=== PATIENT | male | born 1985 | race Caucasian/White ===

== ENCOUNTER 2021-02-12 12:51 | Inpatient (IN) | payer BC, SELFPAY ==
--- NOTE | ~2021-02-12 | XR_ITS ---
EXAMINATION: XR chest 1V portable DATE: 02/12/2021 14:21 INDICATION: COVID-19 pneumonia. TECHNIQUE: A single frontal view of the chest was obtained. COMPARISON: None. FINDINGS: There are patchy airspace opacities in all lung zones bilaterally. No pleural effusion or p neumothorax. The heart size is normal. IMPRESSION: 1. Diffuse lung disease, consistent with COVID-19 pneumonia. Reviewed, dictated and finalized at location B. CIATE PROFESSOR OF BIOLOGY
--- NOTE | ~2021-02-12 | CT_ITS ---
EXAMINATION: CTA chest PE protocol EXAM DATE: 02/15/2021 13:27 INDICATION: Elevated d. dimer. TECHNIQUE: Spiral CTA of the chest (pulmonary arteries) was performed with 100 cc Omnipaque 350 intr avenous contrast injection. Images were acquired during the pulmonary arterial phase. Coronal maxi mum intensity projection 3D-reconstructions were created by the technologist on dedicated workstation . Axial, coronal and sagittal reformatted images were reviewed. The dose-length product (DLP) for t his examination was 1050.25 mGy-cm. The exposure was tailored according to patient size (auto mA ex posure control), and iterative reconstruction (ASIR) was used as additional dose reduction technique. There is no prior study for comparison. FINDINGS: Pulmonary arteries are well opacified and without intraluminal filling defects. No thora cic aortic dissection. Diffuse airspace disease most likely COVID pneumonia, all lobes involved. Th ere are no pleural or pericardial effusions. Tracheobronchial tree is patent. There is no mediast inal, hilar or axillary lymphadenopathy. There is no pneumothorax. Heart normal in size. No balwinder dence of coronary arterial calcification. Upper abdomen is unremarkable. There is thoracic spondyl osis without osteoblastic or osteolytic lesions identified. IMPRESSION: 1. Diffuse COVID pneumonia. 2. No pulmonary emboli. Reviewed, dictated and finalized at location A. UTER REPAIR INSTRUCTOR
--- NOTE | ~2021-02-12 | XR_ITS ---
EXAMINATION: XR chest 1V portable DATE: 02/14/2021 07:08 INDICATION: Dyspnea. TECHNIQUE: A single frontal view of the chest was obtained. COMPARISON: Chest single view 02/12/2021 FINDINGS: There are patchy airspace opacities in all lung zones bilaterally. No pleural effusion or p neumothorax. The heart size is normal. IMPRESSION: 1. Stable diffuse lung disease, consistent with COVID-19 pneumonia. Reviewed, dictated and finalized at location A. CLING CENTER OPERATOR
--- NOTE | ~2021-02-12 | US_ITS ---
EXAMINATION: US venous doppler [facility] DATE: 02/13/2021 14:43 INDICATION: Lower limb swelling. TECHNIQUE: Grayscale ultrasound images without and with compression and Doppler ultrasound images of the bilateral lower extremity veins were obtained. COMPARISON: None. FINDINGS: The visualized portions of right common femoral vein, profunda (deep) femoral vein, femoral vein, pop liteal vein, peroneal veins, posterior tibial veins, and greater saphenous vein outflow are patent. The visualized portions of left common femoral vein, profunda femoral vein, femoral vein, popliteal v ein, peroneal veins, posterior tibial veins, and greater saphenous vein outflow are patent. IMPRESSION: 1. No deep venous thrombosis. Reviewed, dictated and finalized at location A. RDING STUDIO INTERNSHIP
[2021-02-12 13:03] VITALS: BP 133/93; PULSE 127; RESP 20; TEMP 38.9; O2SAT 92
--- NOTE | 2021-02-12 14:03 | ECG_ITS ---
Measurements Intervals [place] Rate: 120 P: 14 [place]: 118 QRS: 5 QRSD: 80 T: 0 QT: 325 QTc: 461 Interpretive Statements SINUS TACHYCARDIA WITH SHORT [place] INTERVAL DELAYED PRECORDIAL R/S TRANSITION CONSIDER INFERIOR INFARCT, AGE INDETERMINATE BASELINE ARTIFACT- II, III, AVR, AVF, V1, V3-V6 ABNORMAL ECG Electronically Signed On 02-12-2021 15:39:49 INDUSTRIAL MANAGEMENT TEACHER by Andreas Mckenna D.O.
[2021-02-12 14:56] LABS: Basophils Percent Auto 0.2 % (0.2-1.2); Hematocrit 45.7 % (42.0-52.0); Hemoglobin 15.4 g/dL (14.0-18.0); Immature Granulocyte Absolute 0.03 K/mm3 (0.00-0.031); Immature Granulocyte Percent A 0.6 % (0-0.5); Lymphocytes Absolute Auto 0.52 K/mm3 (0.9-3.2); Lymphocytes Percent Auto 10.7 % (18.3-44.2); Mean Corpuscular HGB Conc 33.7 g/dl (32-36); Mean Corpuscular Hemoglobin 30.3 pg (26-34); Mean Corpuscular Volume 89.8 fl (80-100); Mean Platelet Volume 11.2 fl (7.4-10.4); Monocytes Absolute Auto 0.3 K/mm3 (0.1-0.6); Neutrophils Percent Auto 82.5 % (45.5-73.1); Platelet Count Result 186 k/mm3 (150-375); Red Blood Count 5.09 M/mm3 (4.6-6.20); Red Cell Distribution Width 12.8 % (11.5-14.5); White Blood Count 4.9 K/mm3 (4.5-10.0)
[2021-02-12 15:08] VITALS: BP 132/78; PULSE 122; RESP 18; O2SAT 94
[2021-02-12 15:13] LABS: Alanine Aminotransferase 52 U/L (4-50); Albumin Level 3.8 g/dL (3.5-5.1); Alkaline Phosphatase 91 U/L (38-126); Anion Gap 9 mmol/L (8-16); Aspartate Amino Transferase 69 U/L (17-59); Bilirubin,Total 0.5 mg/dL (0.2-1.3); Blood Urea Nitrogen 10 mg/dL (9-20); Carbon Dioxide 25 mmol/L (22-30); Chloride 101 mmol/L (98-107); Estimated CRCL calculation 179 ml/min; Estimated Glomerular Filt Rate > 60; Glucose 127 mg/dL (65-110); Potassium 3.4 mmol/L (3.4-5.0); Sodium 135 mmol/L (137-145)
[2021-02-12 16:49] VITALS: BP 144/79; PULSE 117; RESP 21; TEMP 37.3; O2SAT 94
--- NOTE | 2021-02-12 17:09 | ED.SOB ---
HPI - SOB/Dyspnea General Chief Complaint: Shortness of Breath/Dyspnea Stated Complaint: Dyspnea, Covid + Source: patient and RN notes reviewed History of Present Illness HPI Narrative: Patient presents with difficulty breathing started 1 week ago and gradually getting worse. Patient had Covid symptoms 1 week ago, tested +2 days later. Patient is not vaccinated for COVID. Related Data Allergies Allergy/AdvReac Type Severity Reaction Status Date / Time No Known Allergies Allergy Verified 02/12/21 13:07 Review of Systems Review of Systems: CONSTITUTIONAL: Denies fever, chills, or sweats. EYES: Denies visual changes, redness, or discharge. ENT: Denies rhinorrhea, congestion, sore throat, or otalgia. CARDIOVASCULAR: Denies chest pain, palpitations, or edema. RESPIRATORY: Coughing and shortness of breath GASTROINTESTINAL: Denies abdominal pain, nausea, vomiting, or diarrhea. GENITOURINARY: Denies dysuria or hematuria. SKIN: Denies rash or itching. MUSCULOSKELETAL: Denies back pain, joint pain, or myalgia. NEUROLOGIC: Denies headache, numbness, or weakness. PSYCHIATRIC: Denies anxiety or depression. Exam Narrative: General appearance: Well-developed, well-nourished, morbidly obese Skin: Normal color Head: Normocephalic, nontraumatic Eyes: Clear conjunctiva ENT: Oropharynx normal, ears normal, nose normal Neck: Supple, nontender Chest and respiratory: Airway patent, slight labored breathing, diminishment of air entry bilaterally Heart: Regular rate/rhythm Abdomen: Soft, nontender, no organomegaly, quiet bowel sounds Vascular: Normal peripheral pulses, normal capillary refill. Musculoskeletal: Normal range of motion, nontender back Neurologic: Alert and oriented ?3, COUNTY PROGRAM TECHNICIAN is normal as tested, no gross motor deficit Course Course Emergency Course: Stable, guarded Vital Signs Vital signs: Vital Signs Temperature 38.9 C H 02/12/21 13:03 Pulse Rate 127 H 02/12/21 13:03 Respiratory Rate 20 02/12/21 13:03 Blood Pressure 133/93 H 02/12/21 13:03 Pulse Oximetry 92 02/12/21 13:03 Temperature 37.3 C 02/12/21 16:49 Pulse Rate 117 H 02/12/21 16:49 Respiratory Rate 21 H 02/12/21 16:49 Blood Pressure 144/79 H 02/12/21 16:49 Pulse Oximetry 94 02/12/21 16:49 MDM - SOB/Dyspnea Lab Data Result diagrams: 02/12/21 14:33 02/12/21 14:33 Labs: Lab Results 02/12/21 02/12/21 02/12/21 Range/Units 14:33 14:33 14:33 WBC 4.9 (4.5-10.0) K/mm3 RBC 5.09 (4.6-6.20) M/mm3 Hgb 15.4 (14.0-18.0) g/dL Hct 45.7 (42.0-52.0) % MCV 89.8 (80-100) fl MCH 30.3 (26-34) pg MCHC 33.7 (32-36) g/dl RDW 12.8 (11.5-14.5) % Plt Count 186 (150-375) k/mm3 MPV 11.2 H (7.4-10.4) fl Immature Gran % (Auto) 0.6 H (0-0.5) % Neut % (Auto) 82.5 H (45.5-73.1) % Lymph % (Auto) 10.7 L (18.3-44.2) % [place] % (Auto) 6.0 (2.6-8.5) % Eos % (Auto) 0.0 (0-4.4) % Baso % (Auto) 0.2 (0.2-1.2) % Lymph # (Auto) 0.52 L (0.9-3.2) K/mm3 [place] # (Auto) 0.3 (0.1-0.6) K/mm3 Eos # (Auto) 0.0 (0-0.3) K/mm3 Baso # (Auto) 0.0 (0.0-0.1) K/mm3 Abs Immat Gran (auto) 0.03 (0.00-0.031) K/mm3 Absolute Neuts (auto) 4.0 (1.3-6.7) K/mm3 Absolute Nucleated RBC 0.0 (0.0-0.012) K/mm3 Nucleated RBC % 0.0 (0.0-0.2) % PT Pending INR Pending Sodium 135 L (137-14
[2021-02-12 17:16] LABS: Alveolar/Arterial O2 Gradient 156.7 mmHg; Base Excess ABG 1.7 mEq/l (+/-2.0); Fractional Inspired Oxygen 36 %; HCO3 ABG 24.5 mEq/l (22.0-26.0); Modified Allen's Test Pass; Oxygen Content ABG 20.1 %vol (16.0-22.0); Oxygen Saturation ABG 93.1 % (95.0-100.0); Oxyhemoglobin 91.7 % THb (90.0-100.0); PCO2 ABG 33.7 mmHg (35.0-45.0); PO2 ABG 60.9 mmHg (80.0-100.0); PO2 FiO2 Ratio Arterial Blood 1.69 %; Site Drawn LEFT RADIAL; Total Hemoglobin 15.6 g/dL (12.0-18.0)
[2021-02-12 17:17] LABS: Device NASAL CANNULA
[2021-02-12 17:20] LABS: INR 1.1; Prothrombin Time 14.4 Seconds (11.1-14.7)
[2021-02-12] MEDS: REMDESIVIR 200 MG/NS 250 ML 200 MG/250 ML BAG 250 MG IVPB (18:16)
[2021-02-12] MEDS: DEXAMETHASONE 2 MG TABLET 6 MG PO (18:16)
[2021-02-12 18:30] VITALS: BP 145/90; PULSE 111; RESP 18; O2SAT 99
--- NOTE | 2021-02-12 20:58 | PM.IMHP ---
H&P: HPI History of Present Illness Date/Time: 02/13/21 00:50 Chief Complaint: Low oxygen saturation Narrative: 35-year-old with a past medical history of morbid obesity who presented to the ER from urgent care with low oxygen saturations. The patient started having difficulty breathing 1 week ago. He was diagnosed with COVID 4 days ago. His symptoms have been getting progressively worsened so he went to urgent care to try to get antibiotics. When he went to urgent care his oxygen saturations were low and he was directed to come to the ER. The patient was not vaccinated against COVID. On arrival to the ER the patient's oxygen saturations actually read 92%. There is no documented hypoxia since arrival to the ER but patient was placed on 2 L nasal cannula. He was febrile on presentation with a temperature 102? with tachycardia with heart rate 127. His tachycardia did improve with antipyretic therapy. He reports that he has been having intermittent fevers for the last 3-4 days. His symptoms initially started with a dry nonproductive cough. He denies having any significant body aches. He does report some chest discomfort with coughing. He denies any loss of sense of taste or smell. He has had some loose stools over the last couple of days but no celio diarrhea. He denies any hematochezia or melena. He denies any lower extremity swelling. He does snore quite loudly and his tells him frequently that he stops breathing. He denies excessive daytime fatigue. He reported to the nursing staff did he must have lost a few pounds when the weighed him on admission. He did take some [id number]-[id number] cold remedies for the 1st few days of his symptoms which seemed to help initially but as his symptoms progressed they did not provide benefit. Review of Systems Review of Systems: 12 systems were reviewed with pertinent positives and negatives per HPI. Except as documented in the HPI, all other systems were reviewed and are negative. [facility] Past Medical History Medical History (Updated 02/12/21 @ 21:05 by Angie Rivera DO) Morbid obesity with BMI of 60.0-69.9, adult Surgical History Surgical History (Updated 02/13/21 @ 07:28 by Angie Rivera DO) No pertinent past surgical history Family History Family History (Updated 02/13/21 @ 07:29 by Angie Rivera DO) Mother , His mother when the patient was 17. He stated that she had severe pain and went to the hospital and before the next morning. He thinks he was due to medication error. No problems noted. Father , when the patient was 13 of trauma. No problems noted. Social History Social History (Updated 02/13/21 @ 07:31 by Angie Rivera DO) Social History: He has been for 3 years. 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 He rarely drinks alcohol and only in moderation. He is a lifelong nonsmoker and does not use illicit substances. He does not have any children as of yet. He does not have a primary care physician. Code status: Full code Surrogate decision maker: Smoking status: Never smoker Alcohol intake: never Substance use: never Spiritual care concerns: No Meds Home Medications and Allergies Allergies Allergy/AdvReac Type Severity Reaction Status Date / Time No Known Allergies Allergy Verified 02/12/21 13:07 Vital Signs Vital Signs - 24 hr 02/12/21 13:03 02/12/21 15:08 02/12/21 16:49 Temperature 102.0 F H 99.1 F Pulse Rate 127 H 122 H 117 H Respiratory Rate 20 18 21 H Blood Pressure 133/93 H 132/78 144/79 H Pulse Oximetry 92 94 94 02/12/21 18:30 Temperature Pulse Rate 111 H Respiratory Rate 18 Blood Pressure 145/90 H Pulse Oximetry 99 Exam Narrative: PHYSICAL EXAM: WEIGHT 165 kg BMI 66.5 General: Morbidly obese, no acute distress HEENT: Nasal cannula in place, tacky mucous membranes, crowded posterior oropharynx, large neck circumf
[2021-02-12 21:00] VITALS: BP 146/82; PULSE 104; RESP 20; TEMP 36.8; O2SAT 93
[2021-02-13] VITALS (8 sets, daily range): BP systolic 114–146; BP diastolic 55–71; PULSE 93–102; RESP 14–22; TEMP 36.2–37.2; O2SAT 90–94; BMI 66.5
--- NOTE | 2021-02-13 00:54 | ADMGEN ---
This patient, Rafa Marquis, was admitted to [facility] Surg Room 328-01. Patient/family oriented to hospital policies and general routines including ID bracelet, bed and alarms, visiting hours, pain management, procedures, bathroom and other care routines, personal items, smoking policy, room service/diet, and visiting hours. Information on how to activate the Rapid Response Team has been discussed. Patient/Family are encouraged to report perceived risks to care and to ask questions if they do not understand what they are told or what they should do.
[2021-02-13 06:57] LABS: Hematocrit 48.8 % (42.0-52.0); Hemoglobin 15.7 g/dL (14.0-18.0); Mean Corpuscular HGB Conc 32.2 g/dl (32-36); Mean Corpuscular Hemoglobin 30.4 pg (26-34); Mean Corpuscular Volume 94.6 fl (80-100); Mean Platelet Volume 11.2 fl (7.4-10.4); Platelet Count Result 205 k/mm3 (150-375); Red Blood Count 5.16 M/mm3 (4.6-6.20); Red Cell Distribution Width 13.3 % (11.5-14.5); White Blood Count 3.6 K/mm3 (4.5-10.0)
[2021-02-13 07:07] LABS: Prothrombin Time 13.5 Seconds (11.1-14.7)
[2021-02-13 07:38] LABS: Alanine Aminotransferase 76 U/L (4-50); Albumin Level 4.1 g/dL (3.5-5.1); Alkaline Phosphatase 86 U/L (38-126); Anion Gap 13 mmol/L (8-16); Aspartate Amino Transferase 129 U/L (17-59); Bilirubin,Total 0.6 mg/dL (0.2-1.3); Blood Urea Nitrogen 14 mg/dL (9-20); CRP 26.4 mg/dL (<1.0); Calcium 8.1 mg/dL (8.4-10.2); Carbon Dioxide 29 mmol/L (22-30); Chloride 99 mmol/L (98-107); Estimated CRCL calculation 179 ml/min; Estimated Glomerular Filt Rate > 60; Glucose 127 mg/dL (65-110); Lactate Dehydrogenase 1711 U/L (313-618); Potassium 3.3 mmol/L (3.4-5.0); Sodium 141 mmol/L (137-145)
[2021-02-13] MEDS: ALBUTEROL SULFATE (*SP) AEROSOL 1 PUFF 4 PUFF INHALATION (09:19)
--- NOTE | 2021-02-13 09:30 | PM.IMPN ---
Progress Note: A&P Assessment and Plan (1) Pneumonia due to 2019 novel coronavirus: Code(s): U07.1 - COVID-19; J12.82 - Pneumonia due to coronavirus disease 2019 Status: Acute Assessment and Plan: Covid positive Tuesday02/09/21 started on Decadron and Remdesivir day 1 albuterol inhalers Continue supportive care with antipyretic therapy isolation inflammatory markers: Ferritin 701, LDH 1711, CRP 26.4, repeat in the am supportive care supplemental oxygen wean to maintain greater than 94% (2) Sepsis with acute hypoxic respiratory failure: Qualifiers: Sepsis type: sepsis due to unspecified organism Severe sepsis shock status: with septic shock Qualified Code(s): A41.9 - Sepsis, unspecified organism; R65.21 - Severe sepsis with septic shock; J96.01 - Acute respiratory failure with hypoxia Code(s): A41.9 - Sepsis, unspecified organism; R65.20 - Severe sepsis without septic shock; J96.01 - Acute respiratory failure with hypoxia Status: Acute Assessment and Plan: sepsis due to COVID pneumonia with associated hypoxic respiratory failure Meets sepsis criteria with fevers of 102, Tachycardia, and hypoxia within sirs Qsofa score of 0 Covid positive Fluids held because of covid ABG shows resp alkalosis Supplemental oxygen wean to maintain saturation >92% supportive care (3) Morbid obesity with BMI of 60.0-69.9, adult: Code(s): E66.01 - Morbid (severe) obesity due to excess calories; Z68.44 - Body mass index [BMI] 60.0-69.9, adult Status: Inactive Assessment and Plan: lifestyle changes dietitian consult education apnea link to check for IVAN (4) Hypokalemia: Code(s): E87.6 - Hypokalemia Status: Acute Assessment and Plan: potassium 3.3 replace 40 mcg p.o. continue trend labs replace as indicated (5) Transaminitis: Code(s): R74.01 - Elevation of levels of liver transaminase levels Status: Acute Assessment and Plan: AST/ ALT elevated 129/76 hep panel in the a.m. probably related to COVID continue to trend consider right upper quadrant ultrasound Time Spent With Patient Time with patient: 25 - 35 minutes Subjective Date/time seen: 02/13/21 0930 Interval history: Date/Time: 02/13/21 00:50 Narrative: 35-year-old with a past medical history of morbid obesity who presented to the ER from urgent care with low oxygen saturations. The patient started having difficulty breathing 1 week ago. He was diagnosed with COVID 4 days ago. His symptoms have been getting progressively worsened so he went to urgent care to try to get antibiotics. When he went to urgent care his oxygen saturations were low and he was directed to come to the ER. The patient was not vaccinated against COVID. On arrival to the ER the patient's oxygen saturations actually read 92%. There is no documented hypoxia since arrival to the ER but patient was placed on 2 L nasal cannula. He was febrile on presentation with a temperature 102? with tachycardia with heart rate 127. His tachycardia did improve with antipyretic therapy. He reports that he has been having intermittent fevers for the last 3-4 days. His symptoms initially started with a dry nonproductive cough. He denies having any significant body aches. He does report some chest discomfort with coughing. He denies any loss of sense of taste or smell. He has had some loose stools over the last couple of days but no celio diarrhea. He denies any hematochezia or melena. He denies any lower extremity swelling. He does snore quite loudly and his tells him frequently that he stops breathing. He denies excessive daytime fatigue. He reported to the nursing staff did he must have lost a few pounds when the weighed him on admission. He did take some gpej-dwv-rweauyc cold remedies for the 1st few days of his symptoms which se
--- NOTE | 2021-02-13 09:30 | P.PNIM_ITS ---
Progress Note: A&P Assessment and Plan (1) Pneumonia due to 2019 novel coronavirus: Code(s): U07.1 - COVID-19; J12.82 - Pneumonia due to coronavirus disease 2019 Status: Acute Assessment and Plan: * Covid positive Tuesday02/09/21 * started on Decadron and Remdesivir day 1 * albuterol inhalers * Continue supportive care with antipyretic therapy * isolation * inflammatory markers: Ferritin 701, LDH 1711, CRP 26.4, repeat in the am * supportive care * supplemental oxygen wean to maintain greater than 94% (2) Sepsis with acute hypoxic respiratory failure: Qualifiers: Sepsis type: sepsis due to unspecified organism Severe sepsis shock status: with septic shock Qualified Code(s): A41.9 - Sepsis, unspecified organism; R65.21 - Severe sepsis with septic shock; J96.01 - Acute respiratory failure with hypoxia Code(s): A41.9 - Sepsis, unspecified organism; R65.20 - Severe sepsis without septic shock; J96.01 - Acute respiratory failure with hypoxia Status: Acute Assessment and Plan: * sepsis due to COVID pneumonia with associated hypoxic respiratory failure * Meets sepsis criteria with fevers of 102, Tachycardia, and hypoxia within sirs * Qsofa score of 0 * Covid positive * Fluids held because of covid * ABG shows resp alkalosis * Supplemental oxygen wean to maintain saturation >92% * supportive care (3) Morbid obesity with BMI of 60.0-69.9, adult: Code(s): E66.01 - Morbid (severe) obesity due to excess calories; Z68.44 - Body mass index [BMI] 60.0-69.9, adult Status: Inactive Assessment and Plan: * lifestyle changes * dietitian consult * education * apnea link to check for IVAN (4) Hypokalemia: Code(s): E87.6 - Hypokalemia Status: Acute Assessment and Plan: * potassium 3.3 * replace 40 mcg p.o. * continue trend labs * replace as indicated (5) Transaminitis: Code(s): R74.01 - Elevation of levels of liver transaminase levels Status: Acute Assessment and Plan: * AST/ ALT elevated 129/76 * hep panel in the a.m. * probably related to COVID * continue to trend * consider right upper quadrant ultrasound Time Spent With Patient Time with patient: 25 - 35 minutes Subjective Date/time seen: 02/13/2130 Interval history: Date/Time: 02/13/21 00:50 Narrative: 35-year-old with a past medical history of morbid obesity who presented to the ER from urgent care with low oxygen saturations. The patient started having difficulty breathing 1 week ago. He was diagnosed with COVID 4 days ago. His symptoms have been getting progressively worsened so he went to urgent care to try to get antibiotics. When he went to urgent care his oxygen saturations were low and he was directed to come to the ER. The patient was not vaccinated against COVID. On arrival to the ER the patient's oxygen saturations actually read 92%. There is no documented hypoxia since arrival to the ER but patient was placed on 2 L nasal cannula. He was febrile on pres entation with a temperature 102? with tachycardia with heart rate 127. His tachycardia did improve with antipyretic therapy. He reports that he has been having intermittent fevers for the last 3-4 days. His symptoms initially started with a dry nonproductive cough. He denies having any significant body aches. He does report some chest discomfort with coughing. He denies any loss of sense of taste or smell. He has had some lo
[2021-02-13] MEDS: DEXAMETHASONE 2 MG TABLET 6 MG PO (09:47)
[2021-02-13] MEDS: ENOXAPARIN 40 MG/0.4 ML SYRINGE SUB-Q ×2 (09:48→21:57)
[2021-02-13] MEDS: FUROSEMIDE INJ 40 MG/4 ML VIAL IV PUSH (10:03)
[2021-02-13] MEDS: POTASSIUM CHLORIDE 20 MEQ TABLET 40 MEQ PO (14:41)
[2021-02-13] MEDS: ALBUTEROL SULFATE (*SP) INHALER 4 PUFF INHALATION ×2 (14:54→20:08)
[2021-02-13] MEDS: REMDESIVIR 100 MG/NS 250 ML 100 MG/250 ML BAG 250 MG IVPB (21:58)
[2021-02-14] VITALS (8 sets, daily range): BP systolic 118–130; BP diastolic 53–79; PULSE 85–98; RESP 14–22; TEMP 36.5–37.1; O2SAT 90–95
--- NOTE | 2021-02-14 | ECHO_ITS ---
Patient Info Name: Rafa Marquis Age: 35 years : 1985 Gender: Male Ht: 62 in Wt: 363 lbs BSA: 2.81 m2 HR: 75 bpm BP: 126 / 68 mmHg Heart Rhythm: Sinus Rhythm Technical Quality: Other Exam Date: 02/14/2021 9:25 AM Exam Location: [facility] Pulmonary Exam Room: 328 Patient Status: Inpatient Admit Date: 02/12/2021 Staff Ordering Physician: Bhavin Tsai Science Writer: Marivel Merino RDCS Attending Provider: Figueroa Pérez MD Referring Physician: Eulalio PEREZ; Exam Type: CA echo doppler color flow Study Info Indications - MORBID OBESITY FLUID STATUS COVID POS Complete two-dimensional, color flow and Doppler transthoracic echocardiogram is performed. LIMITED VIEWS. Summary 1. Complete two-dimensional, color flow and Doppler transthoracic echocardiogram is performed. 2. Technically challenging exam because of obesity. 3. Normal left and right ventricular size and systolic function. 4. No significant valvular abnormalities. Left Ventricle Left ventricular chamber dimension is normal. Left ventricular systolic function is normal, estimated at 60-65%. The left ventricular diastolic function is normal. Right Ventricle Right ventricular chamber dimension is normal. Left Atria Left atrial chamber dimension is normal. Right Atria Right atrial chamber dimension is normal. Aortic Valve The aortic valve is normal. Pulmonic Valve The pulmonic valve is not well visualized. Mitral Valve The mitral valve has normal leaflets. Tricuspid Valve The tricuspid valve leaflets are normal. Pericardium/Pleural The pericardium appears normal. Aorta The aortic root size at the sinus of Valsalva is normal. Left Ventricular Outflow Tract Name Value Normal LVOT 2D LVOT Diameter 2.2 cm LVOT Doppler LVOT Peak Gradient 5 mmHg LVOT Mean Gradient 2 mmHg LVOT VTI 18 cm LVOT VTI/AV VTI Ratio 1.0 LVOT Stroke Volume 70 ml LVOT CO 15.9 l/min LVOT CI 5.7 l/min/m2 Pulmonic Valve Name Value Normal PV Doppler PV Peak Gradient 4 mmHg Mitral Valve Name Value Normal MV Doppler MV Decel [place] 348 cm/s2 MV PHT 56 ms MV Area (PHT) 4.0 cm2 4.0-5.0 MV Diastolic Function MV E Peak Velocity
[2021-02-14 07:31] LABS: Basophils Percent Auto 0.2 % (0.2-1.2); Hematocrit 46.3 % (42.0-52.0); Hemoglobin 14.8 g/dL (14.0-18.0); Immature Granulocyte Absolute 0.04 K/mm3 (0.00-0.031); Immature Granulocyte Percent A 0.7 % (0-0.5); Lymphocytes Absolute Auto 0.84 K/mm3 (0.9-3.2); Lymphocytes Percent Auto 13.8 % (18.3-44.2); Mean Corpuscular Volume 93.9 fl (80-100); Mean Platelet Volume 11.2 fl (7.4-10.4); Monocytes Absolute Auto 0.8 K/mm3 (0.1-0.6); Monocytes Percent Auto 12.6 % (2.6-8.5); Neutrophils Absolute Auto 4.4 K/mm3 (1.3-6.7); Neutrophils Percent Auto 72.7 % (45.5-73.1); Platelet Count Result 236 k/mm3 (150-375); Red Blood Count 4.93 M/mm3 (4.6-6.20); Red Cell Distribution Width 13.3 % (11.5-14.5); White Blood Count 6.1 K/mm3 (4.5-10.0)
[2021-02-14 07:44] LABS: INR 1.1; Prothrombin Time 14.1 Seconds (11.1-14.7)
[2021-02-14 07:47] LABS: D Dimer 0.68 ug/mL (<0.48)
[2021-02-14 08:13] LABS: Alanine Aminotransferase 114 U/L (4-50); Albumin Level 3.8 g/dL (3.5-5.1); Alkaline Phosphatase 73 U/L (38-126); Anion Gap 8 mmol/L (8-16); Aspartate Amino Transferase 117 U/L (17-59); Bilirubin,Total 0.7 mg/dL (0.2-1.3); Blood Urea Nitrogen 18 mg/dL (9-20); CRP 8.3 mg/dL (<1.0); Calcium 7.9 mg/dL (8.4-10.2); Carbon Dioxide 29 mmol/L (22-30); Chloride 101 mmol/L (98-107); Estimated CRCL calculation 179 ml/min; Estimated Glomerular Filt Rate > 60; Glucose 142 mg/dL (65-110); Lactate Dehydrogenase 1706 U/L (313-618); Potassium 4.1 mmol/L (3.4-5.0); Sodium 138 mmol/L (137-145)
[2021-02-14] MEDS: ENOXAPARIN 40 MG/0.4 ML SYRINGE SUB-Q ×2 (08:39→21:11)
[2021-02-14] MEDS: DEXAMETHASONE 2 MG TABLET 6 MG PO (08:40)
--- NOTE | 2021-02-14 10:00 | PM.IMPN ---
Progress Note: A&P Assessment and Plan (1) Pneumonia due to 2019 novel coronavirus: Code(s): U07.1 - COVID-19; J12.82 - Pneumonia due to coronavirus disease 2019 Status: Acute Assessment and Plan: Covid positive Tuesday02/09/21 started on Decadron and Remdesivir day 2 albuterol inhalers Continue supportive care with antipyretic therapy isolation inflammatory markers: Ferritin 709, LDH 1706, CRP 8.3, dimer 0.68 repeat in the am supportive care supplemental oxygen wean to maintain greater than 94% Start baricitinib (2) Sepsis with acute hypoxic respiratory failure: Qualifiers: Sepsis type: sepsis due to unspecified organism Severe sepsis shock status: with septic shock Qualified Code(s): A41.9 - Sepsis, unspecified organism; R65.21 - Severe sepsis with septic shock; J96.01 - Acute respiratory failure with hypoxia Code(s): A41.9 - Sepsis, unspecified organism; R65.20 - Severe sepsis without septic shock; J96.01 - Acute respiratory failure with hypoxia Status: Acute Assessment and Plan: sepsis due to COVID pneumonia with associated hypoxic respiratory failure Meets sepsis criteria with fevers of 102, Tachycardia, and hypoxia within sirs Qsofa score of 0 Covid positive Fluids held because of covid ABG shows resp alkalosis Supplemental oxygen wean to maintain saturation >92% supportive care (3) Morbid obesity with BMI of 60.0-69.9, adult: Code(s): E66.01 - Morbid (severe) obesity due to excess calories; Z68.44 - Body mass index [BMI] 60.0-69.9, adult Status: Inactive Assessment and Plan: lifestyle changes dietitian consult education apnea link to check for IVAN (4) Hypokalemia: Code(s): E87.6 - Hypokalemia Status: Acute Assessment and Plan: potassium 4.1 continue trend labs replace as indicated (5) Transaminitis: Code(s): R74.01 - Elevation of levels of liver transaminase levels Status: Acute Assessment and Plan: AST/ ALT elevated 117/111 hep panel ordered probably related to COVID continue to trend consider right upper quadrant ultrasound (6) Elevated d-dimer: Code(s): R79.89 - Other specified abnormal findings of blood chemistry Status: Acute Assessment and Plan: Dimer 0.68 CTA ordered to rule out PE Could also be from COVID Venous dopplers negative Lovenox on board (7) Bilateral lower extremity edema: Code(s): R60.0 - Localized edema Status: Acute Assessment and Plan: 2-3+ pitting edema noted bilateral lower extremity Venous doppler negative Lasix dosed daily BNP ordered in the am Echo pending Time Spent With Patient Time with patient: Greater than 35 minutes Subjective Date/time seen: 02/14/21 10:00 Interval history: Date/Time: 02/13/21 00:50 Narrative: 35-year-old with a past medical history of morbid obesity who presented to the ER from urgent care with low oxygen saturations. The patient started having difficulty breathing 1 week ago. He was diagnosed with COVID 4 days ago. His symptoms have been getting progressively worsened so he went to urgent care to try to get antibiotics. When he went to urgent care his oxygen saturations were low and he was directed to come to the ER. The patient was not vaccinated against COVID. On arrival to the ER the patient's oxygen saturations actually read 92%. There is no documented hypoxia since arrival to the ER but patient was placed on 2 L nasal cannula. He was febrile on presentation with a temperature 102? with tachycardia with heart rate 127. His tachycardia did improve with antipyretic therapy. He reports that he has been having intermittent fevers for the last 3-4 days. His symptoms initially started with a dry nonproductive cough. He denies having any significant body aches. He does report some ch
--- NOTE | 2021-02-14 10:00 | P.PNIM_ITS ---
Progress Note: A&P Assessment and Plan (1) Pneumonia due to 2019 novel coronavirus: Code(s): U07.1 - COVID-19; J12.82 - Pneumonia due to coronavirus disease 2019 Status: Acute Assessment and Plan: * Covid positive Tuesday02/09/21 * started on Decadron and Remdesivir day 2 * albuterol inhalers * Continue supportive care with antipyretic therapy * isolation * inflammatory markers: Ferritin 709, LDH 1706, CRP 8.3, dimer 0.68 repeat in the am * supportive care * supplemental oxygen wean to maintain greater than 94% * Start baricitinib (2) Sepsis with acute hypoxic respiratory failure: Qualifiers: Sepsis type: sepsis due to unspecified organism Severe sepsis shock status: with septic shock Qualified Code(s): A41.9 - Sepsis, unspecified organism; R65.21 - Severe sepsis with septic shock; J96.01 - Acute respiratory failure with hypoxia Code(s): A41.9 - Sepsis, unspecified organism; R65.20 - Severe sepsis without septic shock; J96.01 - Acute respiratory failure with hypoxia Status: Acute Assessment and Plan: * sepsis due to COVID pneumonia with associated hypoxic respiratory failure * Meets sepsis criteria with fevers of 102, Tachycardia, and hypoxia within sirs * Qsofa score of 0 * Covid positive * Fluids held because of covid * ABG shows resp alkalosis * Supplemental oxygen wean to maintain saturation >92% * supportive care (3) Morbid obesity with BMI of 60.0-69.9, adult: Code(s): E66.01 - Morbid (severe) obesity due to excess calories; Z68.44 - Body mass index [BMI] 60.0-69.9, adult Status: Inactive Assessment and Plan: * lifestyle changes * dietitian consult * education * apnea link to check for IVAN (4) Hypokalemia: Code(s): E87.6 - Hypokalemia Status: Acute Assessment and Plan: * potassium 4.1 * continue trend labs * replace as indicated (5) Transaminitis: Code(s): R74.01 - Elevation of levels of liver transaminase levels Status: Acute Assessment and Plan: * AST/ ALT elevated 117/111 * hep panel ordered * probably related to COVID * continue to trend * consider right upper quadrant ultrasound (6) Elevated d-dimer: Code(s): R79.89 - Other specified abnormal findings of blood chemistry Status: Acute Assessment and Plan: * Dimer 0.68 * CTA ordered to rule out PE * Could also be from COVID * Venous dopplers negative * Lovenox on board (7) Bilateral lower extremity edema: Code(s): R60.0 - Localized edema Status: Acute Assessment and Plan: * 2-3+ pitting edema noted bilateral lower extremity * Venous doppler negative * Lasix dosed daily * BNP ordered in the am * Echo pending Time Spent With Patient Time with patient: Greater than 35 minutes Subjective Date/time seen: 02/14/21 10:00 Interval history: Date/Time: 02/13/21 00:50 Narrative: 35-year-old with a past medical history of morbid obesity who presented to the ER from urgent care with low oxygen saturations. The patient started having difficulty breathing 1 week ago. He was diagnosed with COVID 4 days ago. His symptoms have been getting progressively worsened so he went to urgent care to try to get antibiotics. When he went to urgent care his oxygen saturations were low and he was directed to come to the ER. The patient was not vacc
--- NOTE | 2021-02-14 11:46 | PCRCNOTE ---
Window of time for administration has passed. See next scheduled administration.
[2021-02-14] MEDS: ALBUTEROL SULFATE (*SP) INHALER 4 PUFF INHALATION ×2 (12:41→21:00)
[2021-02-14 13:09] LABS: Basophils Percent Auto 0.1 % (0.2-1.2); Hematocrit 47.1 % (42.0-52.0); Hemoglobin 15.2 g/dL (14.0-18.0); Immature Granulocyte Absolute 0.07 K/mm3 (0.00-0.031); Immature Granulocyte Percent A 0.8 % (0-0.5); Lymphocytes Absolute Auto 0.87 K/mm3 (0.9-3.2); Lymphocytes Percent Auto 9.8 % (18.3-44.2); Mean Corpuscular HGB Conc 32.3 g/dl (32-36); Mean Corpuscular Hemoglobin 29.9 pg (26-34); Mean Corpuscular Volume 92.7 fl (80-100); Mean Platelet Volume 11.1 fl (7.4-10.4); Monocytes Absolute Auto 0.7 K/mm3 (0.1-0.6); Monocytes Percent Auto 7.6 % (2.6-8.5); Neutrophils Absolute Auto 7.2 K/mm3 (1.3-6.7); Neutrophils Percent Auto 81.7 % (45.5-73.1); Platelet Count Result 251 k/mm3 (150-375); Red Blood Count 5.08 M/mm3 (4.6-6.20); Red Cell Distribution Width 13.2 % (11.5-14.5); White Blood Count 8.9 K/mm3 (4.5-10.0)
[2021-02-14 13:17] LABS: Alanine Aminotransferase 112 U/L (4-50); Aspartate Amino Transferase 103 U/L (17-59); Estimated CRCL calculation 179 ml/min; Estimated Glomerular Filt Rate > 60
[2021-02-14] MEDS: BARICITINIB 2 MG TABLET 4 MG PO (18:09)
[2021-02-14] MEDS: REMDESIVIR 100 MG/NS 250 ML 100 MG/250 ML BAG 250 MG IVPB (21:11)
[2021-02-15] VITALS (10 sets, daily range): BP systolic 122–148; BP diastolic 67–83; PULSE 79–97; RESP 14–20; TEMP 36.8–37.3; O2SAT 86–95
--- NOTE | 2021-02-15 01:52 | PCRCNOTE ---
No MDI provided as patient is on a sleep / apnea study.
--- NOTE | 2021-02-15 07:30 | PM.IMPN ---
Progress Note: A&P Assessment and Plan (1) Pneumonia due to 2019 novel coronavirus: Code(s): U07.1 - COVID-19; J12.82 - Pneumonia due to coronavirus disease 2018 Status: Acute Assessment and Plan: Covid positive Tuesday02/09/21 Chest xray Stable diffuse lung disease, consistent with COVID-19 pneumonia. 02/14/21 started on Decadron and Remdesivir day 3 albuterol inhalers Continue supportive care with antipyretic therapy isolation inflammatory markers: Ferritin 459, LDH 1256, CRP 3.8, dimer 0.65 repeat in the am supportive care supplemental oxygen wean to maintain greater than 94% Start baricitinib (2) Sepsis with acute hypoxic respiratory failure: Qualifiers: Sepsis type: sepsis due to unspecified organism Severe sepsis shock status: with septic shock Qualified Code(s): A41.9 - Sepsis, unspecified organism; R65.21 - Severe sepsis with septic shock; J96.01 - Acute respiratory failure with hypoxia Code(s): A41.9 - Sepsis, unspecified organism; R65.20 - Severe sepsis without septic shock; J96.01 - Acute respiratory failure with hypoxia Status: Acute Assessment and Plan: sepsis due to COVID pneumonia with associated hypoxic respiratory failure Meets sepsis criteria with fevers of 102, Tachycardia, and hypoxia within sirs Qsofa score of 0 Covid positive Fluids held because of covid ABG shows resp alkalosis Supplemental oxygen wean to maintain saturation >92% supportive care Seems to be resolved at this time (3) Morbid obesity with BMI of 60.0-69.9, adult: Code(s): E66.01 - Morbid (severe) obesity due to excess calories; Z68.44 - Body mass index [BMI] 60.0-69.9, adult Status: Inactive Assessment and Plan: lifestyle changes dietitian consult education apnea link to check for IVAN (4) Hypokalemia: Code(s): E87.6 - Hypokalemia Status: Acute Assessment and Plan: potassium 4.1 continue trend labs replace as indicated (5) Transaminitis: Code(s): R74.01 - Elevation of levels of liver transaminase levels Status: Acute Assessment and Plan: AST/ ALT elevated 56/88 hep panel ordered probably related to COVID continue to trend consider right upper quadrant ultrasound (6) Elevated d-dimer: Code(s): R79.89 - Other specified abnormal findings of blood chemistry Status: Acute Assessment and Plan: Dimer 0.68 CTA ordered to rule out PE, still pending Could also be from COVID Venous dopplers negative Lovenox on board (7) Bilateral lower extremity edema: Code(s): R60.0 - Localized edema Status: Acute Assessment and Plan: 2-3+ pitting edema noted bilateral lower extremity Venous doppler negative Lasix dosed daily BNP 35 Echo Normal systolic and diastolic function with EF of 60-65% (8) Hyperglycemia: Code(s): R73.9 - Hyperglycemia, unspecified Status: Acute Assessment and Plan: Glucose up to 162 today A1c 6.3 Type 2 diabetes Start metformin and have outpatient diabetes education Strong family history of diabetes Consider sliding scale and accu cheks Time Spent With Patient Time with patient: 25 - 35 minutes Subjective Date/time seen: 02/15/21 0730 Interval history: Date/Time: 02/13/21 00:50 Narrative: 35-year-old with a past medical history of morbid obesity who presented to the ER from urgent care with low oxygen saturations. The patient started having difficulty breathing 1 week ago. He was diagnosed with COVID 4 days ago. His symptoms have been getting progressively worsened so he went to urgent care to try to get antibiotics. When he went to urgent care his oxygen saturations were low and he was directed to come to the ER. The patient was not vaccinated against COVID. On arrival to the ER the patient's oxygen saturations actuall
--- NOTE | 2021-02-15 07:30 | P.PNIM_ITS ---
Progress Note: A&P Assessment and Plan (1) Pneumonia due to 2019 novel coronavirus: Code(s): U07.1 - COVID-19; J12.82 - Pneumonia due to coronavirus disease 2018 Status: Acute Assessment and Plan: * Covid positive Tuesday02/09/21 * Chest xray Stable diffuse lung disease, consistent with COVID-19 pneumonia. 02/14/21 * started on Decadron and Remdesivir day 3 * albuterol inhalers * Continue supportive care with antipyretic therapy * isolation * inflammatory markers: Ferritin 459, LDH 1256, CRP 3.8, dimer 0.65 repeat in the am * supportive care * supplemental oxygen wean to maintain greater than 94% * Start baricitinib (2) Sepsis with acute hypoxic respiratory failure: Qualifiers: Sepsis type: sepsis due to unspecified organism Severe sepsis shock status: with septic shock Qualified Code(s): A41.9 - Sepsis, unspecified organism; R65.21 - Severe sepsis with septic shock; J96.01 - Acute respiratory failure with hypoxia Code(s): A41.9 - Sepsis, unspecified organism; R65.20 - Severe sepsis without septic shock; J96.01 - Acute respiratory failure with hypoxia Status: Acute Assessment and Plan: * sepsis due to COVID pneumonia with associated hypoxic respiratory failure * Meets sepsis criteria with fevers of 102, Tachycardia, and hypoxia within sirs * Qsofa score of 0 * Covid positive * Fluids held because of covid * ABG shows resp alkalosis * Supplemental oxygen wean to maintain saturation >92% * supportive care Seems to be resolved at this time (3) Morbid obesity with BMI of 60.0-69.9, adult: Code(s): E66.01 - Morbid (severe) obesity due to excess calories; Z68.44 - Body mass index [BMI] 60.0-69.9, adult Status: Inactive Assessment and Plan: * lifestyle changes * dietitian consult * education * apnea link to check for IVAN (4) Hypokalemia: Code(s): E87.6 - Hypokalemia Status: Acute Assessment and Plan: * potassium 4.1 * continue trend labs * replace as indicated (5) Transaminitis: Code(s): R74.01 - Elevation of levels of liver transaminase levels Status: Acute Assessment and Plan: * AST/ ALT elevated 56/88 * hep panel ordered * probably related to COVID * continue to trend * consider right upper quadrant ultrasound (6) Elevated d-dimer: Code(s): R79.89 - Other specified abnormal findings of blood chemistry Status: Acute Assessment and Plan: * Dimer 0.68 * CTA ordered to rule out PE, still pending * Could also be from COVID * Venous dopplers negative * Lovenox on board (7) Bilateral lower extremity edema: Code(s): R60.0 - Localized edema Status: Acute Assessment and Plan: * 2-3+ pitting edema noted bilateral lower extremity * Venous doppler negative * Lasix dosed daily * BNP 35 * Echo Normal systolic and diastolic function with EF of 60-65% (8) Hyperglycemia: Code(s): R73.9 - Hyperglycemia, unspecified Status: Acute Assessment and Plan: * Glucose up to 162 today * A1c 6.3 * Type 2 diabetes * Start metformin and have outpatient diabetes education * Strong family history of diabetes * Consider sliding scale and accu cheks Time Spent With Patient Time with patient: 25 - 35 minutes Subjective Date/time seen: 02/15/21 0948
[2021-02-15] MEDS: BARICITINIB 2 MG TABLET 4 MG PO (08:51)
[2021-02-15] MEDS: ENOXAPARIN 40 MG/0.4 ML SYRINGE SUB-Q ×2 (08:51→21:06)
[2021-02-15 09:47] LABS: INR 1.1; Prothrombin Time 14.3 Seconds (11.1-14.7)
[2021-02-15 09:49] LABS: Basophils Percent Auto 0.2 % (0.2-1.2); Hematocrit 45.4 % (42.0-52.0); Hemoglobin 14.5 g/dL (14.0-18.0); Immature Granulocyte Absolute 0.06 K/mm3 (0.00-0.031); Immature Granulocyte Percent A 0.9 % (0-0.5); Lymphocytes Absolute Auto 1.33 K/mm3 (0.9-3.2); Lymphocytes Percent Auto 20.6 % (18.3-44.2); Mean Corpuscular HGB Conc 31.9 g/dl (32-36); Mean Corpuscular Hemoglobin 30.2 pg (26-34); Mean Corpuscular Volume 94.6 fl (80-100); Mean Platelet Volume 11.4 fl (7.4-10.4); Monocytes Absolute Auto 0.8 K/mm3 (0.1-0.6); Monocytes Percent Auto 12.1 % (2.6-8.5); Neutrophils Absolute Auto 4.3 K/mm3 (1.3-6.7); Neutrophils Percent Auto 66.2 % (45.5-73.1); Platelet Count Result 254 k/mm3 (150-375); Red Cell Distribution Width 13.2 % (11.5-14.5); White Blood Count 6.5 K/mm3 (4.5-10.0)
[2021-02-15 09:50] LABS: D Dimer 0.65 ug/mL (<0.48)
[2021-02-15 09:51] LABS: Alanine Aminotransferase 88 U/L (4-50); Albumin Level 3.6 g/dL (3.5-5.1); Alkaline Phosphatase 83 U/L (38-126); Anion Gap 7 mmol/L (8-16); Aspartate Amino Transferase 56 U/L (17-59); Bilirubin,Total 0.6 mg/dL (0.2-1.3); Blood Urea Nitrogen 17 mg/dL (9-20); CRP 3.8 mg/dL (<1.0); Carbon Dioxide 31 mmol/L (22-30); Chloride 103 mmol/L (98-107); Estimated CRCL calculation 179 ml/min; Estimated Glomerular Filt Rate > 60; Glucose 162 mg/dL (65-110); Lactate Dehydrogenase 1256 U/L (313-618); Magnesium 2.1 mg/dL (1.6-2.3); Potassium 3.5 mmol/L (3.4-5.0); Sodium 141 mmol/L (137-145)
[2021-02-15 09:57] LABS: NT Pro B Type Natriuretic Pept 35 pg/mL (5-100)
--- NOTE | 2021-02-15 12:21 | PCRCNOTE ---
Past window of treatment time
[2021-02-15 13:37] LABS: Hemoglobin A1C 6.3 % (<5.7)
[2021-02-15] MEDS: ALBUTEROL SULFATE (*SP) INHALER 4 PUFF INHALATION (13:49)
[2021-02-15] MEDS: REMDESIVIR 100 MG/NS 250 ML 100 MG/250 ML BAG 250 MG IVPB (21:07)
--- NOTE | 2021-02-15 23:36 | PCRCNOTE ---
Window of time for administration has passed. See next scheduled administration.
[2021-02-16] MEDS: ALBUTEROL SULFATE (*SP) INHALER 4 PUFF INHALATION ×4 (02:41→21:14)
[2021-02-16 03:36] VITALS: BP 117/56; PULSE 81; RESP 20; TEMP 36.9; O2SAT 90
[2021-02-16 08:00] VITALS: BP 115/68; PULSE 85; RESP 20; TEMP 36.4; O2SAT 94
[2021-02-16] MEDS: BARICITINIB 2 MG TABLET 4 MG PO (08:38)
[2021-02-16] MEDS: ENOXAPARIN 40 MG/0.4 ML SYRINGE SUB-Q ×2 (08:38→20:37)
--- NOTE | 2021-02-16 09:30 | PM.IMPN ---
Progress Note: A&P Assessment and Plan (1) Pneumonia due to 2019 novel coronavirus: Code(s): U07.1 - COVID-19; J12.82 - Pneumonia due to coronavirus disease 2018 Status: Acute Assessment and Plan: Covid positive Tuesday02/09/21 Chest xray Stable diffuse lung disease, consistent with COVID-19 pneumonia. 02/14/21 started on Decadron and Remdesivir day 4 albuterol inhalers Continue supportive care with antipyretic therapy isolation inflammatory markers: Ferritin 459, LDH 1256, CRP 3.8, dimer 0.65 02/15/21 repeat in the am supportive care supplemental oxygen wean to maintain greater than 94% Start baricitinib (2) Sepsis with acute hypoxic respiratory failure: Qualifiers: Sepsis type: sepsis due to unspecified organism Severe sepsis shock status: with septic shock Qualified Code(s): A41.9 - Sepsis, unspecified organism; R65.21 - Severe sepsis with septic shock; J96.01 - Acute respiratory failure with hypoxia Code(s): A41.9 - Sepsis, unspecified organism; R65.20 - Severe sepsis without septic shock; J96.01 - Acute respiratory failure with hypoxia Status: Acute Assessment and Plan: sepsis due to COVID pneumonia with associated hypoxic respiratory failure Meets sepsis criteria with fevers of 102, Tachycardia, and hypoxia within sirs Qsofa score of 0 Covid positive Fluids held because of covid ABG shows resp alkalosis Supplemental oxygen wean to maintain saturation >92% supportive care Seems to be resolved at this time (3) Morbid obesity with BMI of 60.0-69.9, adult: Code(s): E66.01 - Morbid (severe) obesity due to excess calories; Z68.44 - Body mass index [BMI] 60.0-69.9, adult Status: Inactive Assessment and Plan: lifestyle changes dietitian consult education apnea link to check for IVAN (4) Hypokalemia: Code(s): E87.6 - Hypokalemia Status: Acute Assessment and Plan: potassium 3.9 continue trend labs replace as indicated Resolved at this time (5) Transaminitis: Code(s): R74.01 - Elevation of levels of liver transaminase levels Status: Acute Assessment and Plan: AST/ ALT elevated 51/83 hep panel ordered probably related to COVID continue to trend consider right upper quadrant ultrasound (6) Elevated d-dimer: Code(s): R79.89 - Other specified abnormal findings of blood chemistry Status: Acute Assessment and Plan: Dimer 0.68 CTA ordered to rule out PE, still pending Could also be from COVID Venous dopplers negative Lovenox on board (7) Bilateral lower extremity edema: Code(s): R60.0 - Localized edema Status: Acute Assessment and Plan: 2-3+ pitting edema noted bilateral lower extremity Venous doppler negative Lasix dosed daily BNP 35 Echo Normal systolic and diastolic function with EF of 60-65% (8) Diabetes: Code(s): E11.9 - Type 2 diabetes mellitus without complications Status: Acute Assessment and Plan: Glucose up to 142 A1c 6.3 Type 2 diabetes Start metformin and have outpatient diabetes education Strong family history of diabetes sliding scale and accu cheks Time Spent With Patient Time with patient: 25 - 35 minutes Subjective Date/time seen: 02/16/21 0930 Interval history: Date/Time: 02/13/21 00:50 Narrative: 35-year-old with a past medical history of morbid obesity who presented to the ER from urgent care with low oxygen saturations. The patient started having difficulty breathing 1 week ago. He was diagnosed with COVID 4 days ago. His symptoms have been getting progressively worsened so he went to urgent care to try to get antibiotics. When he went to urgent care his oxygen saturations were low and he was directed to come to the ER. The patient was not vaccinated against COVID. On arrival to the ER the patient's oxy
--- NOTE | 2021-02-16 09:30 | P.PNIM_ITS ---
Progress Note: A&P Assessment and Plan (1) Pneumonia due to 2019 novel coronavirus: Code(s): U07.1 - COVID-19; J12.82 - Pneumonia due to coronavirus disease 2018 Status: Acute Assessment and Plan: * Covid positive Tuesday02/09/21 * Chest xray Stable diffuse lung disease, consistent with COVID-19 pneumonia. 02/14/21 * started on Decadron and Remdesivir day 4 * albuterol inhalers * Continue supportive care with antipyretic therapy * isolation * inflammatory markers: Ferritin 459, LDH 1256, CRP 3.8, dimer 0.65 02/15/21 repeat in the am * supportive care * supplemental oxygen wean to maintain greater than 94% * Start baricitinib (2) Sepsis with acute hypoxic respiratory failure: Qualifiers: Sepsis type: sepsis due to unspecified organism Severe sepsis shock status: with septic shock Qualified Code(s): A41.9 - Sepsis, unspecified organism; R65.21 - Severe sepsis with septic shock; J96.01 - Acute respiratory failure with hypoxia Code(s): A41.9 - Sepsis, unspecified organism; R65.20 - Severe sepsis without septic shock; J96.01 - Acute respiratory failure with hypoxia Status: Acute Assessment and Plan: * sepsis due to COVID pneumonia with associated hypoxic respiratory failure * Meets sepsis criteria with fevers of 102, Tachycardia, and hypoxia within sirs * Qsofa score of 0 * Covid positive * Fluids held because of covid * ABG shows resp alkalosis * Supplemental oxygen wean to maintain saturation >92% * supportive care Seems to be resolved at this time (3) Morbid obesity with BMI of 60.0-69.9, adult: Code(s): E66.01 - Morbid (severe) obesity due to excess calories; Z68.44 - Body mass index [BMI] 60.0-69.9, adult Status: Inactive Assessment and Plan: * lifestyle changes * dietitian consult * education * apnea link to check for IVAN (4) Hypokalemia: Code(s): E87.6 - Hypokalemia Status: Acute Assessment and Plan: * potassium 3.9 * continue trend labs * replace as indicated Resolved at this time (5) Transaminitis: Code(s): R74.01 - Elevation of levels of liver transaminase levels Status: Acute Assessment and Plan: * AST/ ALT elevated 51/83 * hep panel ordered * probably related to COVID * continue to trend * consider right upper quadrant ultrasound (6) Elevated d-dimer: Code(s): R79.89 - Other specified abnormal findings of blood chemistry Status: Acute Assessment and Plan: * Dimer 0.68 * CTA ordered to rule out PE, still pending * Could also be from COVID * Venous dopplers negative * Lovenox on board (7) Bilateral lower extremity edema: Code(s): R60.0 - Localized edema Status: Acute Assessment and Plan: * 2-3+ pitting edema noted bilateral lower extremity * Venous doppler negative * Lasix dosed daily * BNP 35 * Echo Normal systolic and diastolic function with EF of 60-65% (8) Diabetes: Code(s): E11.9 - Type 2 diabetes mellitus without complications Status: Acute Assessment and Plan: * Glucose up to 142 * A1c 6.3 * Type 2 diabetes * Start metformin and have outpatient diabetes education * Strong family history of diabetes * sliding scale and accu cheks Time Spent With Patient Time with patient: 25 - 35 minutes Subjective Date/time seen: 02/16/21 6434
[2021-02-16 09:45] LABS: INR 1.1; Prothrombin Time 13.7 Seconds (11.1-14.7)
[2021-02-16 11:43] LABS: Basophils Percent Auto 0.3 % (0.2-1.2); Hematocrit 44.2 % (42.0-52.0); Hemoglobin 14.2 g/dL (14.0-18.0); Immature Granulocyte Absolute 0.13 K/mm3 (0.00-0.031); Immature Granulocyte Percent A 1.4 % (0-0.5); Lymphocytes Absolute Auto 1.03 K/mm3 (0.9-3.2); Lymphocytes Percent Auto 11.2 % (18.3-44.2); Mean Corpuscular HGB Conc 32.1 g/dl (32-36); Mean Corpuscular Volume 93.4 fl (80-100); Monocytes Percent Auto 10.4 % (2.6-8.5); Neutrophils Percent Auto 76.7 % (45.5-73.1); Platelet Count Result 234 k/mm3 (150-375); Red Blood Count 4.73 M/mm3 (4.6-6.20); Red Cell Distribution Width 13.1 % (11.5-14.5); White Blood Count 9.2 K/mm3 (4.5-10.0)
[2021-02-16 11:51] LABS: Alanine Aminotransferase 83 U/L (4-50); Albumin Level 3.6 g/dL (3.5-5.1); Alkaline Phosphatase 82 U/L (38-126); Anion Gap 8 mmol/L (8-16); Aspartate Amino Transferase 51 U/L (17-59); Bilirubin,Total 0.7 mg/dL (0.2-1.3); Blood Urea Nitrogen 15 mg/dL (9-20); Calcium 7.9 mg/dL (8.4-10.2); Carbon Dioxide 28 mmol/L (22-30); Chloride 103 mmol/L (98-107); Estimated CRCL calculation 179 ml/min; Estimated Glomerular Filt Rate > 60; Glucose 149 mg/dL (65-110); Magnesium 1.9 mg/dL (1.6-2.3); Potassium 3.9 mmol/L (3.4-5.0); Sodium 139 mmol/L (137-145)
[2021-02-16 11:56] VITALS: BP 122/63; PULSE 97; RESP 20; TEMP 36.6; O2SAT 92
[2021-02-16 15:47] VITALS: BP 130/71; PULSE 92; RESP 20; TEMP 36.4; O2SAT 93
[2021-02-16 16:44] LABS: Glucose Point of Care 228 mg/dl (65-105)
[2021-02-16] MEDS: INSULIN ASPART (*BKC) 100 UNITS/ML SUB-Q (17:29)
[2021-02-16 20:00] VITALS: BP 128/70; PULSE 94; RESP 18; TEMP 37; O2SAT 92
[2021-02-16 21:11] LABS: Glucose Point of Care 186 mg/dl (65-105)
[2021-02-16 21:17] VITALS: O2SAT 93
[2021-02-16] MEDS: REMDESIVIR 100 MG/NS 250 ML 100 MG/250 ML BAG 250 MG IVPB (22:07)
[2021-02-17] VITALS (9 sets, daily range): BP systolic 112–133; BP diastolic 61–89; PULSE 79–102; RESP 18–20; TEMP 36–36.6; O2SAT 90–94; BMI 66.5
[2021-02-17] MEDS: ALBUTEROL SULFATE (*SP) INHALER 4 PUFF INHALATION ×4 (02:02→21:05)
[2021-02-17 07:12] LABS: Alanine Aminotransferase 70 U/L (4-50); Albumin Level 3.3 g/dL (3.5-5.1); Alkaline Phosphatase 75 U/L (38-126); Anion Gap 4 mmol/L (8-16); Aspartate Amino Transferase 36 U/L (17-59); Bilirubin,Total 0.6 mg/dL (0.2-1.3); Blood Urea Nitrogen 13 mg/dL (9-20); CRP 3.4 mg/dL (<1.0); Calcium 7.9 mg/dL (8.4-10.2); Carbon Dioxide 29 mmol/L (22-30); Chloride 105 mmol/L (98-107); Estimated CRCL calculation 206 ml/min; Estimated Glomerular Filt Rate > 60; Glucose 87 mg/dL (65-110); Lactate Dehydrogenase 1060 U/L (313-618); Magnesium 1.9 mg/dL (1.6-2.3); Potassium 3.8 mmol/L (3.4-5.0); Sodium 138 mmol/L (137-145)
[2021-02-17 07:30] LABS: Basophils Percent Auto 0.5 % (0.2-1.2); Eosinophils Percent Auto 0.1 % (0-4.4); Hematocrit 45.5 % (42.0-52.0); Hemoglobin 14.5 g/dL (14.0-18.0); Immature Granulocyte Absolute 0.23 K/mm3 (0.00-0.031); Immature Granulocyte Percent A 2.6 % (0-0.5); Lymphocytes Absolute Auto 1.92 K/mm3 (0.9-3.2); Lymphocytes Percent Auto 21.9 % (18.3-44.2); Mean Corpuscular HGB Conc 31.9 g/dl (32-36); Mean Platelet Volume 11.3 fl (7.4-10.4); Monocytes Absolute Auto 0.9 K/mm3 (0.1-0.6); Monocytes Percent Auto 10.4 % (2.6-8.5); Neutrophils Absolute Auto 5.6 K/mm3 (1.3-6.7); Neutrophils Percent Auto 64.5 % (45.5-73.1); Platelet Count Result 242 k/mm3 (150-375); Red Blood Count 4.84 M/mm3 (4.6-6.20); White Blood Count 8.8 K/mm3 (4.5-10.0)
[2021-02-17 07:46] LABS: Hepatitis B Surface Antigen Negative (Negative)
[2021-02-17 07:49] LABS: D Dimer 0.65 ug/mL (<0.48)
[2021-02-17 07:52] LABS: HAV RESULT Negative (Negative); Hepatitis B Core IgM Result Negative (Negative)
[2021-02-17 08:04] LABS: Hepatitis C Virus Antibody Negative (Negative)
[2021-02-17] MEDS: BARICITINIB 2 MG TABLET 4 MG PO (10:17)
[2021-02-17] MEDS: metFORMIN HCL 500 MG TABLET PO (10:18)
[2021-02-17 10:21] LABS: Glucose Point of Care 72 mg/dl (65-105)
--- NOTE | 2021-02-17 11:30 | P.PNIM_ITS ---
Progress Note: A&P Assessment and Plan (1) Pneumonia due to 2019 novel coronavirus: Code(s): U07.1 - COVID-19; J12.82 - Pneumonia due to coronavirus disease 2018 Status: Acute Assessment and Plan: * Covid positive Tuesday02/09/21 * Chest xray Stable diffuse lung disease, consistent with COVID-19 pneumonia. 02/14/21 * started on Decadron and Remdesivir day 5 * albuterol inhalers * Continue supportive care with antipyretic therapy * isolation * inflammatory markers: Ferritin 389, LDH 1060, CRP 3.4, dimer 0.65 02/17/21 * supportive care * supplemental oxygen wean to maintain greater than 94% * Start baricitinib (2) Sepsis with acute hypoxic respiratory failure: Qualifiers: Sepsis type: sepsis due to unspecified organism Severe sepsis shock status: with septic shock Qualified Code(s): A41.9 - Sepsis, unspecified organism; R65.21 - Severe sepsis with septic shock; J96.01 - Acute respiratory failure with hypoxia Code(s): A41.9 - Sepsis, unspecified organism; R65.20 - Severe sepsis without septic shock; J96.01 - Acute respiratory failure with hypoxia Status: Acute Assessment and Plan: * sepsis due to COVID pneumonia with associated hypoxic respiratory failure * Meets sepsis criteria with fevers of 102, Tachycardia, and hypoxia within sirs * Qsofa score of 0 * Covid positive * Fluids held because of covid * ABG shows resp alkalosis * Supplemental oxygen wean to maintain saturation >92% * supportive care Seems to be resolved at this time (3) Morbid obesity with BMI of 60.0-69.9, adult: Code(s): E66.01 - Morbid (severe) obesity due to excess calories; Z68.44 - Body mass index [BMI] 60.0-69.9, adult Status: Inactive Assessment and Plan: * lifestyle changes * dietitian consult * education * apnea link to check for IVAN (4) Hypokalemia: Code(s): E87.6 - Hypokalemia Status: Acute Assessment and Plan: * potassium 3.8 * continue trend labs * replace as indicated Resolved at this time (5) Transaminitis: Code(s): R74.01 - Elevation of levels of liver transaminase levels Status: Acute Assessment and Plan: * AST/ ALT elevated 36/70 * hep panel ordered * probably related to COVID * continue to trend * consider right upper quadrant ultrasound (6) Elevated d-dimer: Code(s): R79.89 - Other specified abnormal findings of blood chemistry Status: Acute Assessment and Plan: * Dimer 0.65 * CTA ordered to rule out PE, still pending * Could also be from COVID * Venous dopplers negative * Lovenox on board (7) Bilateral lower extremity edema: Code(s): R60.0 - Localized edema Status: Acute Assessment and Plan: * 2-3+ pitting edema noted bilateral lower extremity * Venous doppler negative * Lasix dosed daily * BNP 35 * Echo Normal systolic and diastolic function with EF of 60-65% (8) Diabetes: Code(s): E11.9 - Type 2 diabetes mellitus without complications Status: Acute Assessment and Plan: * Glucose up to 87 * A1c 6.3 * Type 2 diabetes * Start metformin and have outpatient diabetes education * Strong family history of diabetes * sliding scale and accu cheks Time Spent With Patient Time with patient: 25 - 35 minutes Subjective Date/time seen: 02/17/21 1130 Interval his
--- NOTE | 2021-02-17 11:30 | PM.IMPN ---
Progress Note: A&P Assessment and Plan (1) Pneumonia due to 2019 novel coronavirus: Code(s): U07.1 - COVID-19; J12.82 - Pneumonia due to coronavirus disease 2018 Status: Acute Assessment and Plan: Covid positive Tuesday02/09/21 Chest xray Stable diffuse lung disease, consistent with COVID-19 pneumonia. 02/14/21 started on Decadron and Remdesivir day 5 albuterol inhalers Continue supportive care with antipyretic therapy isolation inflammatory markers: Ferritin 389, LDH 1060, CRP 3.4, dimer 0.65 02/17/21 supportive care supplemental oxygen wean to maintain greater than 94% Start baricitinib (2) Sepsis with acute hypoxic respiratory failure: Qualifiers: Sepsis type: sepsis due to unspecified organism Severe sepsis shock status: with septic shock Qualified Code(s): A41.9 - Sepsis, unspecified organism; R65.21 - Severe sepsis with septic shock; J96.01 - Acute respiratory failure with hypoxia Code(s): A41.9 - Sepsis, unspecified organism; R65.20 - Severe sepsis without septic shock; J96.01 - Acute respiratory failure with hypoxia Status: Acute Assessment and Plan: sepsis due to COVID pneumonia with associated hypoxic respiratory failure Meets sepsis criteria with fevers of 102, Tachycardia, and hypoxia within sirs Qsofa score of 0 Covid positive Fluids held because of covid ABG shows resp alkalosis Supplemental oxygen wean to maintain saturation >92% supportive care Seems to be resolved at this time (3) Morbid obesity with BMI of 60.0-69.9, adult: Code(s): E66.01 - Morbid (severe) obesity due to excess calories; Z68.44 - Body mass index [BMI] 60.0-69.9, adult Status: Inactive Assessment and Plan: lifestyle changes dietitian consult education apnea link to check for IVAN (4) Hypokalemia: Code(s): E87.6 - Hypokalemia Status: Acute Assessment and Plan: potassium 3.8 continue trend labs replace as indicated Resolved at this time (5) Transaminitis: Code(s): R74.01 - Elevation of levels of liver transaminase levels Status: Acute Assessment and Plan: AST/ ALT elevated 36/70 hep panel ordered probably related to COVID continue to trend consider right upper quadrant ultrasound (6) Elevated d-dimer: Code(s): R79.89 - Other specified abnormal findings of blood chemistry Status: Acute Assessment and Plan: Dimer 0.65 CTA ordered to rule out PE, still pending Could also be from COVID Venous dopplers negative Lovenox on board (7) Bilateral lower extremity edema: Code(s): R60.0 - Localized edema Status: Acute Assessment and Plan: 2-3+ pitting edema noted bilateral lower extremity Venous doppler negative Lasix dosed daily BNP 35 Echo Normal systolic and diastolic function with EF of 60-65% (8) Diabetes: Code(s): E11.9 - Type 2 diabetes mellitus without complications Status: Acute Assessment and Plan: Glucose up to 87 A1c 6.3 Type 2 diabetes Start metformin and have outpatient diabetes education Strong family history of diabetes sliding scale and accu cheks Time Spent With Patient Time with patient: 25 - 35 minutes Subjective Date/time seen: 02/17/21 1130 Interval history: Date/Time: 02/13/21 00:50 Narrative: 35-year-old with a past medical history of morbid obesity who presented to the ER from urgent care with low oxygen saturations. The patient started having difficulty breathing 1 week ago. He was diagnosed with COVID 4 days ago. His symptoms have been getting progressively worsened so he went to urgent care to try to get antibiotics. When he went to urgent care his oxygen saturations were low and he was directed to come to the ER. The patient was not vaccinated against COVID. On arrival to the ER the patient's oxygen saturations ac
[2021-02-17 11:34] LABS: Glucose Point of Care 103 mg/dl (65-105)
[2021-02-17] MEDS: ENOXAPARIN 40 MG/0.4 ML SYRINGE SUB-Q ×2 (11:46→20:55)
[2021-02-17 12:19] LABS: INR 1.1; Prothrombin Time 13.8 Seconds (11.1-14.7)
[2021-02-17 12:20] LABS: Alanine Aminotransferase 72 U/L (4-50); Estimated CRCL calculation 179 ml/min; Estimated Glomerular Filt Rate > 60
[2021-02-17 16:30] LABS: Glucose Point of Care 198 mg/dl (65-105)
[2021-02-17] MEDS: REMDESIVIR 100 MG/NS 250 ML 100 MG/250 ML BAG 250 MG IVPB (20:56)
[2021-02-17 21:24] LABS: Glucose Point of Care 167 mg/dl (65-105)
[2021-02-18] VITALS (9 sets, daily range): BP systolic 121–136; BP diastolic 64–78; PULSE 72–101; RESP 16–18; TEMP 36.2–36.9; O2SAT 92–95
[2021-02-18] MEDS: ALBUTEROL SULFATE (*SP) INHALER 4 PUFF INHALATION ×4 (02:20→21:47)
--- NOTE | 2021-02-18 04:27 | PCRCNOTE ---
Patient refused apnea link stating he just wanted to get over covid, then he will address his possibility of sleep apnea at a later date.
[2021-02-18 07:42] LABS: Basophils Absolute Auto 0.1 K/mm3 (0.0-0.1); Basophils Percent Auto 0.8 % (0.2-1.2); Eosinophils Absolute Auto 0.1 K/mm3 (0-0.3); Eosinophils Percent Auto 0.9 % (0-4.4); Hematocrit 46.5 % (42.0-52.0); Hemoglobin 14.6 g/dL (14.0-18.0); Immature Granulocyte Absolute 0.45 K/mm3 (0.00-0.031); Immature Granulocyte Percent A 4.3 % (0-0.5); Lymphocytes Absolute Auto 2.01 K/mm3 (0.9-3.2); Lymphocytes Percent Auto 19.4 % (18.3-44.2); Mean Corpuscular HGB Conc 31.4 g/dl (32-36); Mean Corpuscular Hemoglobin 29.5 pg (26-34); Mean Corpuscular Volume 93.9 fl (80-100); Mean Platelet Volume 11.7 fl (7.4-10.4); Monocytes Absolute Auto 1.1 K/mm3 (0.1-0.6); Monocytes Percent Auto 10.2 % (2.6-8.5); Neutrophils Absolute Auto 6.7 K/mm3 (1.3-6.7); Neutrophils Percent Auto 64.4 % (45.5-73.1); Red Blood Count 4.95 M/mm3 (4.6-6.20); Red Cell Distribution Width 13.1 % (11.5-14.5); White Blood Count 10.4 K/mm3 (4.5-10.0)
[2021-02-18 07:56] LABS: Prothrombin Time 13.5 Seconds (11.1-14.7)
[2021-02-18 07:57] LABS: Alanine Aminotransferase 62 U/L (4-50); Aspartate Amino Transferase 48 U/L (17-59); Estimated CRCL calculation 179 ml/min; Estimated Glomerular Filt Rate > 60
[2021-02-18 08:12] LABS: Glucose Point of Care 86 mg/dl (65-105)
[2021-02-18 09:22] LABS: Alanine Aminotransferase 63 U/L (4-50); Albumin Level 3.6 g/dL (3.5-5.1); Alkaline Phosphatase 89 U/L (38-126); Anion Gap 11 mmol/L (8-16); Aspartate Amino Transferase 42 U/L (17-59); Bilirubin,Total 0.7 mg/dL (0.2-1.3); Blood Urea Nitrogen 14 mg/dL (9-20); Calcium 8.5 mg/dL (8.4-10.2); Carbon Dioxide 24 mmol/L (22-30); Chloride 102 mmol/L (98-107); Estimated CRCL calculation 179 ml/min; Estimated Glomerular Filt Rate > 60; Glucose 93 mg/dL (65-110); Potassium 3.8 mmol/L (3.4-5.0); Sodium 137 mmol/L (137-145)
--- NOTE | 2021-02-18 09:30 | PM.IMPN ---
Progress Note: A&P Assessment and Plan (1) Pneumonia due to 2019 novel coronavirus: Code(s): U07.1 - COVID-19; J12.82 - Pneumonia due to coronavirus disease 2018 Status: Acute Assessment and Plan: Covid positive Tuesday02/09/21 Chest xray Stable diffuse lung disease, consistent with COVID-19 pneumonia. 02/14/21 started on Decadron and Remdesivir day 6 albuterol inhalers Continue supportive care with antipyretic therapy isolation inflammatory markers: Ferritin 389, LDH 1060, CRP 3.4, dimer 0.65 02/17/21 supportive care supplemental oxygen wean to maintain greater than 94% Start baricitinib (2) Sepsis with acute hypoxic respiratory failure: Qualifiers: Sepsis type: sepsis due to unspecified organism Severe sepsis shock status: with septic shock Qualified Code(s): A41.9 - Sepsis, unspecified organism; R65.21 - Severe sepsis with septic shock; J96.01 - Acute respiratory failure with hypoxia Code(s): A41.9 - Sepsis, unspecified organism; R65.20 - Severe sepsis without septic shock; J96.01 - Acute respiratory failure with hypoxia Status: Acute Assessment and Plan: sepsis due to COVID pneumonia with associated hypoxic respiratory failure Meets sepsis criteria with fevers of 102, Tachycardia, and hypoxia within sirs Qsofa score of 0 Covid positive Fluids held because of covid ABG shows resp alkalosis Supplemental oxygen wean to maintain saturation >92% supportive care Seems to be resolved at this time (3) Morbid obesity with BMI of 60.0-69.9, adult: Code(s): E66.01 - Morbid (severe) obesity due to excess calories; Z68.44 - Body mass index [BMI] 60.0-69.9, adult Status: Inactive Assessment and Plan: lifestyle changes dietitian consult education apnea link to check for IVAN (4) Hypokalemia: Code(s): E87.6 - Hypokalemia Status: Acute Assessment and Plan: potassium 3.8 continue trend labs replace as indicated Resolved at this time (5) Transaminitis: Code(s): R74.01 - Elevation of levels of liver transaminase levels Status: Acute Assessment and Plan: AST/ ALT elevated 42/63 hep panel negative probably related to COVID continue to trend consider right upper quadrant ultrasound (6) Elevated d-dimer: Code(s): R79.89 - Other specified abnormal findings of blood chemistry Status: Acute Assessment and Plan: Dimer 0.65 CTA ordered to rule out PE, still pending Could also be from COVID Venous dopplers negative Lovenox on board (7) Bilateral lower extremity edema: Code(s): R60.0 - Localized edema Status: Acute Assessment and Plan: 2-3+ pitting edema noted bilateral lower extremity Venous doppler negative Lasix dosed daily BNP 35 Echo Normal systolic and diastolic function with EF of 60-65% (8) Diabetes: Code(s): E11.9 - Type 2 diabetes mellitus without complications Status: Acute Assessment and Plan: Glucose 93 today A1c 6.3 Type 2 diabetes Start metformin and have outpatient diabetes education Strong family history of diabetes sliding scale and accu cheks (9) Tachycardia: Code(s): R00.0 - Tachycardia, unspecified Status: Acute Assessment and Plan: Asymptomatic Patient gets up to 140-150 with activity 2.5mg IV metoprolol once 12.5mg PO metoprolol BID Trend HR Adjust therapy as indicated Subjective Date/time seen: 02/18/21 0930 Interval history: Date/Time: 02/13/21 00:50 Narrative: 35-year-old with a past medical history of morbid obesity who presented to the ER from urgent care with low oxygen saturations. The patient started having difficulty breathing 1 week ago. He was diagnosed with COVID 4 days ago. His symptoms have been getting progressively worsened so he went to urgent care to
--- NOTE | 2021-02-18 09:30 | P.PNIM_ITS ---
Progress Note: A&P Assessment and Plan (1) Pneumonia due to 2019 novel coronavirus: Code(s): U07.1 - COVID-19; J12.82 - Pneumonia due to coronavirus disease 2018 Status: Acute Assessment and Plan: * Covid positive Tuesday02/09/21 * Chest xray Stable diffuse lung disease, consistent with COVID-19 pneumonia. 02/14/21 * started on Decadron and Remdesivir day 6 * albuterol inhalers * Continue supportive care with antipyretic therapy * isolation * inflammatory markers: Ferritin 389, LDH 1060, CRP 3.4, dimer 0.65 02/17/21 * supportive care * supplemental oxygen wean to maintain greater than 94% * Start baricitinib (2) Sepsis with acute hypoxic respiratory failure: Qualifiers: Sepsis type: sepsis due to unspecified organism Severe sepsis shock status: with septic shock Qualified Code(s): A41.9 - Sepsis, unspecified organism; R65.21 - Severe sepsis with septic shock; J96.01 - Acute respiratory failure with hypoxia Code(s): A41.9 - Sepsis, unspecified organism; R65.20 - Severe sepsis without septic shock; J96.01 - Acute respiratory failure with hypoxia Status: Acute Assessment and Plan: * sepsis due to COVID pneumonia with associated hypoxic respiratory failure * Meets sepsis criteria with fevers of 102, Tachycardia, and hypoxia within sirs * Qsofa score of 0 * Covid positive * Fluids held because of covid * ABG shows resp alkalosis * Supplemental oxygen wean to maintain saturation >92% * supportive care Seems to be resolved at this time (3) Morbid obesity with BMI of 60.0-69.9, adult: Code(s): E66.01 - Morbid (severe) obesity due to excess calories; Z68.44 - Body mass index [BMI] 60.0-69.9, adult Status: Inactive Assessment and Plan: * lifestyle changes * dietitian consult * education * apnea link to check for IVAN (4) Hypokalemia: Code(s): E87.6 - Hypokalemia Status: Acute Assessment and Plan: * potassium 3.8 * continue trend labs * replace as indicated Resolved at this time (5) Transaminitis: Code(s): R74.01 - Elevation of levels of liver transaminase levels Status: Acute Assessment and Plan: * AST/ ALT elevated 42/63 * hep panel negative * probably related to COVID * continue to trend * consider right upper quadrant ultrasound (6) Elevated d-dimer: Code(s): R79.89 - Other specified abnormal findings of blood chemistry Status: Acute Assessment and Plan: * Dimer 0.65 * CTA ordered to rule out PE, still pending * Could also be from COVID * Venous dopplers negative * Lovenox on board (7) Bilateral lower extremity edema: Code(s): R60.0 - Localized edema Status: Acute Assessment and Plan: * 2-3+ pitting edema noted bilateral lower extremity * Venous doppler negative * Lasix dosed daily * BNP 35 * Echo Normal systolic and diastolic function with EF of 60-65% (8) Diabetes: Code(s): E11.9 - Type 2 diabetes mellitus without complications Status: Acute Assessment and Plan: * Glucose 93 today * A1c 6.3 * Type 2 diabetes * Start metformin and have outpatient diabetes education * Strong family history of diabetes * sliding scale and accu cheks (9) Tachycardia: Code(s): R00.0 - Tachycardia, unspecified Status: Acute Assessment an
[2021-02-18] MEDS: metFORMIN HCL 500 MG TABLET PO (09:54)
[2021-02-18] MEDS: ENOXAPARIN 40 MG/0.4 ML SYRINGE SUB-Q ×2 (09:54→21:45)
[2021-02-18] MEDS: BARICITINIB 2 MG TABLET 4 MG PO (09:54)
[2021-02-18 11:55] LABS: Glucose Point of Care 127 mg/dl (65-105)
[2021-02-18] MEDS: METOPROLOL TARTRATE INJ 5 MG/5 ML VIAL 2.5 MG IV PUSH (16:48)
[2021-02-18 16:53] LABS: Glucose Point of Care 178 mg/dl (65-105)
[2021-02-18] MEDS: REMDESIVIR 100 MG/NS 250 ML 100 MG/250 ML BAG 250 MG IVPB (21:44)
[2021-02-18] MEDS: METOPROLOL TARTRATE 12.5 MG TABLET PO (21:44)
[2021-02-18 22:24] LABS: Glucose Point of Care 170 mg/dl (65-105)
[2021-02-19] VITALS: BP 122/67; PULSE 63; RESP 18; TEMP 35.9; O2SAT 95
[2021-02-19] MEDS: ALBUTEROL SULFATE (*SP) INHALER 4 PUFF INHALATION ×2 (03:23→08:06)
[2021-02-19 04:00] VITALS: BP 125/68; PULSE 84; RESP 18; TEMP 36.2; O2SAT 95
[2021-02-19 07:34] LABS: Basophils Absolute Auto 0.1 K/mm3 (0.0-0.1); Basophils Percent Auto 0.6 % (0.2-1.2); Eosinophils Absolute Auto 0.1 K/mm3 (0-0.3); Eosinophils Percent Auto 0.6 % (0-4.4); Hematocrit 47.8 % (42.0-52.0); Hemoglobin 15.2 g/dL (14.0-18.0); Immature Granulocyte Absolute 0.54 K/mm3 (0.00-0.031); Immature Granulocyte Percent A 4.4 % (0-0.5); Lymphocytes Absolute Auto 2.31 K/mm3 (0.9-3.2); Mean Corpuscular HGB Conc 31.8 g/dl (32-36); Mean Corpuscular Hemoglobin 29.9 pg (26-34); Mean Corpuscular Volume 94.1 fl (80-100); Mean Platelet Volume 11.5 fl (7.4-10.4); Monocytes Absolute Auto 1.2 K/mm3 (0.1-0.6); Neutrophils Percent Auto 65.4 % (45.5-73.1); Platelet Count Result 351 k/mm3 (150-375); Red Blood Count 5.08 M/mm3 (4.6-6.20); Red Cell Distribution Width 13.2 % (11.5-14.5); White Blood Count 12.2 K/mm3 (4.5-10.0)
[2021-02-19 08:00] VITALS: BP 119/66; PULSE 83; RESP 20; TEMP 36.1; O2SAT 97
[2021-02-19 08:07] VITALS: PULSE 76; O2SAT 95
--- NOTE | 2021-02-19 08:20 | PCNWS ---
Weekly nutritional screen. Patient is tolerating current diet with adequate intake. No weight loss reported. No nutritional needs at this time.
[2021-02-19 08:22] LABS: Glucose Point of Care 64 mg/dl (65-105)
[2021-02-19 09:05] LABS: Glucose Point of Care 77 mg/dl (65-105)
[2021-02-19 09:38] VITALS: PULSE 76
[2021-02-19] MEDS: BARICITINIB 2 MG TABLET 4 MG PO (09:38)
[2021-02-19] MEDS: METOPROLOL TARTRATE 12.5 MG TABLET PO (09:38)
[2021-02-19] MEDS: ENOXAPARIN 40 MG/0.4 ML SYRINGE SUB-Q (09:38)
[2021-02-19] MEDS: metFORMIN HCL 500 MG TABLET PO (09:38)
--- NOTE | 2021-02-19 10:08 | PC.NURSE ---
Outpatient referral started for Initial DSMT and MNT. [facility]
[2021-02-19 10:35] LABS: INR 1.2
[2021-02-19 10:37] LABS: D Dimer 1.44 ug/mL (<0.48)
--- NOTE | 2021-02-19 11:00 | P.DS_ITS ---
DS: Admitting Diagnosis Discharge Date 02/19/21 1100 Admitting Diagnosis COVID 19 PNA, new onset diabetes DS: Discharge Diagnosis Discharge Diagnosis (1) Pneumonia due to 2019 novel coronavirus: Code(s): U07.1 - COVID-19; J12.82 - Pneumonia due to coronavirus disease 2018 Status: Acute Assessment and Plan: * Covid positive Tuesday02/09/21 * Chest xray Stable diffuse lung disease, consistent with COVID-19 pneumonia. 02/14/21 * started on Decadron and Remdesivir day 7 * albuterol inhalers * Continue supportive care with antipyretic therapy * isolation * inflammatory markers: Ferritin 338, LDH 1054, CRP 3.4, dimer 0.65 02/19/21 * supportive care * supplemental oxygen wean to maintain greater than 94% * Start baricitinib (2) Sepsis with acute hypoxic respiratory failure: Qualifiers: Sepsis type: sepsis due to unspecified organism Severe sepsis shock status: with septic shock Qualified Code(s): A41.9 - Sepsis, unspecified organism; R65.21 - Severe sepsis with septic shock; J96.01 - Acute respiratory failure with hypoxia Code(s): A41.9 - Sepsis, unspecified organism; R65.20 - Severe sepsis without septic shock; J96.01 - Acute respiratory failure with hypoxia Status: Acute Assessment and Plan: * sepsis due to COVID pneumonia with associated hypoxic respiratory failure * Meets sepsis criteria with fevers of 102, Tachycardia, and hypoxia within sirs * Qsofa score of 0 * Covid positive * Fluids held because of covid * ABG shows resp alkalosis * Supplemental oxygen wean to maintain saturation >92% * supportive care Seems to be resolved at this time (3) Morbid obesity with BMI of 60.0-69.9, adult: Code(s): E66.01 - Morbid (severe) obesity due to excess calories; Z68.44 - Body mass index [BMI] 60.0-69.9, adult Status: Inactive Assessment and Plan: * lifestyle changes * dietitian consult * education * apnea link to check for IVAN (4) Hypokalemia: Code(s): E87.6 - Hypokalemia Status: Acute Assessment and Plan: * potassium 4.5 * continue trend labs * replace as indicated Resolved at this time (5) Transaminitis: Code(s): R74.01 - Elevation of levels of liver transaminase levels Status: Acute Assessment and Plan: * AST/ ALT elevated 35/62, alk phos 72 * hep panel negative * probably related to COVID * continue to trend * consider right upper quadrant ultrasound (6) Elevated d-dimer: Code(s): R79.89 - Other specified abnormal findings of blood chemistry Status: Acute Assessment and Plan: * Dimer 1.44 * CTA ordered to rule out PE, still pending * Could also be from COVID * Venous dopplers negative * Lovenox on board (7) Bilateral lower extremity edema: Code(s): R60.0 - Localized edema Status: Acute Assessment and Plan: * 2-3+ pitting edema noted bilateral lower extremity * Venous doppler negative * Lasix dosed daily * BNP 35 * Echo Normal systolic and diastolic function with EF of 60-65% (8) Diabetes: Code(s): E11.9 - Type 2 diabetes mellitus without complications Status: Acute Assessment and Plan: * Glucose 85 today * A1c 6.3 * Type 2 diabetes * Start metformin and have outpatient diabetes education * Strong family history of diabetes * sliding scale and accu cheks
--- NOTE | 2021-02-19 11:00 | PM.DS ---
DS: Admitting Diagnosis Discharge Date 02/19/21 1100 Admitting Diagnosis COVID 19 PNA, new onset diabetes DS: Discharge Diagnosis Discharge Diagnosis (1) Pneumonia due to 2019 novel coronavirus: Code(s): U07.1 - COVID-19; J12.82 - Pneumonia due to coronavirus disease 2018 Status: Acute Assessment and Plan: Covid positive Tuesday02/09/21 Chest xray Stable diffuse lung disease, consistent with COVID-19 pneumonia. 02/14/21 started on Decadron and Remdesivir day 7 albuterol inhalers Continue supportive care with antipyretic therapy isolation inflammatory markers: Ferritin 338, LDH 1054, CRP 3.4, dimer 0.65 02/19/21 supportive care supplemental oxygen wean to maintain greater than 94% Start baricitinib (2) Sepsis with acute hypoxic respiratory failure: Qualifiers: Sepsis type: sepsis due to unspecified organism Severe sepsis shock status: with septic shock Qualified Code(s): A41.9 - Sepsis, unspecified organism; R65.21 - Severe sepsis with septic shock; J96.01 - Acute respiratory failure with hypoxia Code(s): A41.9 - Sepsis, unspecified organism; R65.20 - Severe sepsis without septic shock; J96.01 - Acute respiratory failure with hypoxia Status: Acute Assessment and Plan: sepsis due to COVID pneumonia with associated hypoxic respiratory failure Meets sepsis criteria with fevers of 102, Tachycardia, and hypoxia within sirs Qsofa score of 0 Covid positive Fluids held because of covid ABG shows resp alkalosis Supplemental oxygen wean to maintain saturation >92% supportive care Seems to be resolved at this time (3) Morbid obesity with BMI of 60.0-69.9, adult: Code(s): E66.01 - Morbid (severe) obesity due to excess calories; Z68.44 - Body mass index [BMI] 60.0-69.9, adult Status: Inactive Assessment and Plan: lifestyle changes dietitian consult education apnea link to check for IVAN (4) Hypokalemia: Code(s): E87.6 - Hypokalemia Status: Acute Assessment and Plan: potassium 4.5 continue trend labs replace as indicated Resolved at this time (5) Transaminitis: Code(s): R74.01 - Elevation of levels of liver transaminase levels Status: Acute Assessment and Plan: AST/ ALT elevated 35/62, alk phos 72 hep panel negative probably related to COVID continue to trend consider right upper quadrant ultrasound (6) Elevated d-dimer: Code(s): R79.89 - Other specified abnormal findings of blood chemistry Status: Acute Assessment and Plan: Dimer 1.44 CTA ordered to rule out PE, still pending Could also be from COVID Venous dopplers negative Lovenox on board (7) Bilateral lower extremity edema: Code(s): R60.0 - Localized edema Status: Acute Assessment and Plan: 2-3+ pitting edema noted bilateral lower extremity Venous doppler negative Lasix dosed daily BNP 35 Echo Normal systolic and diastolic function with EF of 60-65% (8) Diabetes: Code(s): E11.9 - Type 2 diabetes mellitus without complications Status: Acute Assessment and Plan: Glucose 85 today A1c 6.3 Type 2 diabetes Start metformin and have outpatient diabetes education Strong family history of diabetes sliding scale and accu cheks (9) Tachycardia: Code(s): R00.0 - Tachycardia, unspecified Status: Acute Assessment and Plan: Asymptomatic Patient gets up to 140-150 with activity, better controlled with the metoprolol 2.5mg IV metoprolol once 12.5mg PO metoprolol BID Trend HR Adjust therapy as indicated DS: Summary Hospital Course Hospital Course: Patient is a 35 year old male with no significant past medical history who presented to the ED with low oxygen saturations. He did have a positive covid test on 02/08/21. Upon arrival patient was treated
[2021-02-19 11:41] LABS: Glucose Point of Care 139 mg/dl (65-105)
[2021-02-19 12:00] VITALS: BP 115/72; PULSE 91; RESP 20; TEMP 35.9; O2SAT 95
[2021-02-19 12:02] LABS: Alanine Aminotransferase 62 U/L (4-50); Albumin Level 3.3 g/dL (3.5-5.1); Alkaline Phosphatase 72 U/L (38-126); Anion Gap 10 mmol/L (8-16); Aspartate Amino Transferase 35 U/L (17-59); Bilirubin,Total 0.5 mg/dL (0.2-1.3); Blood Urea Nitrogen 16 mg/dL (9-20); CRP 3.4 mg/dL (<1.0); Calcium 8.6 mg/dL (8.4-10.2); Carbon Dioxide 22 mmol/L (22-30); Chloride 104 mmol/L (98-107); Estimated CRCL calculation 179 ml/min; Estimated Glomerular Filt Rate > 60; Glucose 85 mg/dL (65-110); Lactate Dehydrogenase 1054 U/L (313-618); Magnesium 1.8 mg/dL (1.6-2.3); Potassium 4.5 mmol/L (3.4-5.0); Sodium 136 mmol/L (137-145)
== END 2021-02-19 14:00 | disposition home or self-care (01) | DRG 871 ==
LOC: ANHED 17:19 → ANH3MEDSUR 02-16 15:25
PROVIDERS: Internal Medicine; Admitting Provider Internal Medicine; Emergency Provider Emergency Medicine; Visit Provider Nurse Practitioner
DX: A41.89 Other specified sepsis (principal); U07.1 COVID-19; J12.82 Pneumonia due to coronavirus disease 2019; J96.01 Acute respiratory failure with hypoxia; Z68.44 Body mass index [BMI] 60.0-69.9, adult; R65.20 Severe sepsis without septic shock; E66.01 Morbid (severe) obesity due to excess calories; E87.6 Hypokalemia; R74.01 Elevation of levels of liver transaminase levels; E11.65 Type 2 diabetes mellitus with hyperglycemia
CPT/HCPCS: 36415; 36600; 71045; 71275; 80053; 80074; 82565; 82728; 82805; 82948; 83036; 83615; 83735; 83880; 84450; 84460; 85025; 85027; 85055; 85380; 85610; 86140; 93005; 93306; 93970; 94640; 99285; A9270; J1100; J1650; J1815; J1940; J8540; Q9967